=== PATIENT | male | born 1975 | race American Indian/Alaskan Native ===

== ENCOUNTER 2017-04-03 18:43 | Emergency (ER) | payer SELFPAY ==
--- NOTE | 2017-04-03 20:13 | Emergency Department Report ---
ED Shortness of Breath HPI - General Chief Complaint: Dyspnea/Respdistress Stated Complaint: BENITO Time Seen by Provider: 04/03/17 19:51 Source: patient, family, EMS Mode of arrival: Stretcher Limitations: No Limitations - History of Present Illness MD Complaint: shortness of breath, "asthma attack" -: Gradual Consistency: intermittent, now resolved Improves With: bronchodilators Worsens With: other (polen) Known History Of: asthma Treatments Prior to Arrival: bronchodilator (tachy p treat. no cp. sob resolved) - Related Data Home Oxygen Therapy: No Home Medications Medication Instructions Recorded Confirmed Last Taken Albuterol Sulfate [Ventolin HFA] 05/26/14 05/26/14 Unknown Previous Rx's Medication Instructions Recorded Last Taken Type Albuterol Sulfate [Ventolin HFA] 2 puff IH Q4H PRN #1 hfa.aer.ad 07/02/15 Unknown Rx predniSONE [Deltasone] 40 mg PO TID #10 tab 07/02/15 Unknown Rx Albuterol Sulfate [Ventolin HFA] 2 puff IH Q4H PRN #1 hfa.aer.ad 01/01/16 Unknown Rx methylPREDNISolone [Medrol] 4 mg PO QAM #1 tab.ds.pk 01/01/16 Unknown Rx ALBUTEROL Inhaler [ProAir HFA 2 puff IH QID PRN #1 inhalation 04/03/17 Unknown Rx Inhaler] Azithromycin [Zithromax Z-RAMON] 250 mg PO DAILY #6 tab 04/03/17 Unknown Rx predniSONE [Deltasone] 40 mg PO QDAY #10 each 04/03/17 Unknown Rx Allergies Allergy/AdvReac Type Severity Reaction Status Date / Time No Known Allergies Allergy Verified 12/31/15 23:18 ED Review of Systems ROS: Stated complaint: BENITO Other details as noted in HPI Comment: All other systems reviewed and negative Constitutional: no symptoms reported, see HPI Eyes: as per HPI ENT: as per HPI Respiratory: no symptoms reported, see HPI Cardiovascular: as per HPI. denies: chest pain, palpitations, dyspnea on exertion, orthopnea Endocrine: no symptoms reported, see HPI. denies: excessive sweating, flushing , intolerance to cold, intolerance to heat Gastrointestinal: as per HPI. denies: abdominal pain, nausea, vomiting Genitourinary: as per HPI. denies: urgency, dysuria Musculoskeletal: as per HPI. denies: back pain Skin: as per HPI. denies: rash, lesions Neurological: as per HPI. denies: headache, weakness Psychiatric: as per HPI. denies: anxiety, depression Hematological/Lymphatic: as per HPI ED Past Medical Hx - Past Medical History Previous Medical History?: Yes Hx Asthma: Yes - Surgical History Past Surgical History?: No - Social History Smoking Status: Current Some Day Smoker Substance Use Type: None - Medications Home Medications: Home Medications Medication Instructions Recorded Confirmed Last Taken Type Albuterol Sulfate [Ventolin HFA] 05/26/14 05/26/14 Unknown History Albuterol Sulfate [Ventolin HFA] 2 puff IH Q4H PRN #1 hfa.aer.ad 07/02/15 Unknown Rx predniSONE [Deltasone] 40 mg PO TID #10 tab 07/02/15 Unknown Rx Albuterol Sulfate [Ventolin HFA] 2 puff IH Q4H PRN #1 hfa.aer.ad 01/01/16 Unknown Rx methylPREDNISolone [Medrol] 4 mg PO QAM #1 tab.ds.pk 01/01/16 Unknown Rx ALBUTEROL Inhaler [ProAir HFA 2 puff IH QID PRN #1 inhalation 04/03/17 Unknown Rx Inhaler] Azithromycin [Zithromax Z-RAMON] 250 mg PO DAILY #6 tab 04/03/17 Unknown Rx predniSONE [Deltasone] 40 mg PO QDAY #10 each 04/03/17 Unknown Rx ED Physical Exam - General Limitations: No Limitations General appearance: alert, in no apparent distress - Head Head exam: Present: atraumatic - Eye Eye exam: Present: normal appearance, EOMI Pupils: Present: normal accommodation - ENT ENT exam: Present: normal exam, mucous membranes moist - Neck Neck exam: Present: normal inspection. Absent: tenderness, meningismus - Respiratory Respiratory exam: Present: normal lung sounds bilaterally, other (cta p solumedrol and rt in ambulance). Absent: respiratory distress, wheezes, rales, rhonchi, stridor, chest wall tenderness, accessory muscle use, decreased breath sounds, prolonged expiratory - Cardiovascular Cardiovascular Exam: Present: regular rate, normal rhythm, tachycardia (p tx) - GI/Abdominal GI/Abdominal exam: Present: soft. Absent: distended, tenderness, guarding, rebound, rigid, normal bowel sounds, diminished bowel sounds - Rectal Rectal exam: Present: deferred - Extremities Exam Extremities exam: Present: normal inspection, full ROM. Absent: tenderness - Back Exam Back exam: Present: normal inspection, full ROM. Absent: tenderness, CVA tenderness (R), CVA tenderness (L) - Neurological Exam Neurological exam: Present: alert, altered, oriented X3, CN II-XII intact, normal gait, reflexes normal. Absent: abnormal gait, motor sensory deficit - Psychiatric Psychiatric exam: Present: normal affect, normal mood, anxious (p tx) - Skin Skin exam: Present: warm, dry, intact, normal color. Absent: rash (non ill) ED Course Vital Signs 04/03/17 04/03/17 04/03/17 19:11 20:01 21:49 Temperature 99.1 F 98.9 F Pulse Rate 115 H 110 H Respiratory 20 20 20 Rate Blood Pressure 142/95 Blood Pressure 152/92 [Right] O2 Sat by Pulse 98 98 98 Oximetry - Reevaluation(s) Reevaluation #1: 04/03/17 21:07 to er via ems w asthma attack cleared by time arrived p tx and solumedrol no recent illness no fever or chills no cough not on meds at home fam at bedside no cp tachy p rt tx xray and labs noted dc home- hr on dc 100 bpm, sat 100 ED Medical Decision Making - Lab Data Result diagrams: 04/03/17 20:16 04/03/17 20:16 - Radiology Data Radiology results: report reviewed, image reviewed - Medical Decision Making sp acute asthma attach via ems improved on arrival xray noted no consolidation non toxic non ill appearing Critical care attestation.: If time is entered above; I have spent that time in minutes in the direct care of this critically ill patient, excluding procedure time. ED Disposition Clinical Impression: Acute asthma exacerbation, Tachycardia Disposition: DC-01 TO HOME OR SELFCARE Is pt being admited?: No Does the pt Need Aspirin: No Condition: Stable Instructions: Asthma (ED) Additional Instructions: rest fluids meds as ordered follow up pcp Prescriptions: ALBUTEROL Inhaler [ProAir HFA Inhaler] 2 puff IH QID PRN #1 inhalation PRN Reason: Shortness Of Breath Azithromycin [Zithromax Z-RAMON] 250 mg PO DAILY #6 tab predniSONE [Deltasone] 40 mg PO QDAY #10 each Referrals: PRIMARY CARE, [Primary Care Provider] - 3-5 Days Time of Disposition: 21:10
--- NOTE | 2017-04-03 20:14 | XRay Report ---
FINAL REPORT PROCEDURE: XR CHEST ROUTINE 2V TECHNIQUE: PA and lateral chest radiographs were obtained. CPT 05667 HISTORY: Shortness of breath COMPARISON: No prior studies are available for comparison. FINDINGS: Heart: Normal contour. Mediastinum/Vessels: Normal contour. Lungs/Pleural space: No infiltrate, effusion, or pneumothorax. Bony thorax: No acute osseous abnormality. Other: IMPRESSION: No radiographic evidence of acute abnormality.
[2017-04-03 20:43] LABS: Basophils % (Auto) 0.3 % (0.0-1.8); Eosinophils % (Auto) 0.3 % (0.0-4.3); Mean Corpuscular HGB Conc 33 % (32-34); Mean Corpuscular Hemoglobin 29 pg (28-32); Mean Corpuscular Volume 90 fl (84-94); Platelet Count 213 K/mm3 (140-440); Red Cell Distribution Width 14.4 % (13.2-15.2); White Blood Count 10.7 K/mm3 (4.5-11.0)
[2017-04-03 20:46] LABS: Anion Gap 19 mmol/L; BUN/Creatinine Ratio 8.88; Blood Urea Nitrogen 8 mg/dL (9-20); Calcium 8.9 mg/dL (8.4-10.2); Carbon Dioxide 22 mmol/L (22-30); Chloride 102.8 mmol/L (98-107); Glucose 107 mg/dL (75-100); Sodium 140 mmol/L (137-145)
[2017-04-03 20:50] LABS: Alanine Aminotransferase 23 units/L (7-56); Albumin 4.2 g/dL (3.9-5); Albumin/Globulin Ratio 1.4 %; Alkaline Phosphatase 60 units/L (35-129); Total Protein 7.3 g/dL (6.3-8.2)
[2017-04-03 20:55] LABS: Bilirubin,Direct < 0.2 mg/dL (0-0.2)
[2017-04-03 21:50] VITALS: BP 152/92
== END 2017-04-03 22:23 | disposition home or self-care (01) ==
LOC: ED 18:43
DX: J45.901 Unspecified asthma with (acute) exacerbation (principal); R00.0 Tachycardia, unspecified; Z72.0 Tobacco use
CPT/HCPCS: 36415; 71020; 80048; 80074; 84484; 85025; 93005; 93010